=== PATIENT | male | born 1995 | race Caucasian/White ===

== ENCOUNTER 2021-04-06 02:15 | Emergency (ER) | payer SELFPAY ==
[~2021-04-06] VITALS: Ht 177.8 cm; Wt 120.0 kg
[2021-04-06] MEDS ORDERED: LIDOCAINE-MPF 1%, 5ML INFIL ONE (02:30)
[2021-04-06] MEDS ORDERED: DIPH,PERTUSS(ACELL),TET VAC/PF 0.5 ML IM-VACC ONE ×2 (02:30→02:33)
[2021-04-06] MEDS ORDERED: LIDOCAINE-MPF 1%, 5ML ONE (02:32)
[2021-04-06] MEDS ORDERED: NEOSPORIN OINT. PKT 1 PACKET ONE (03:39)
--- NOTE | 2021-04-06 03:54 | NUR ---
Patient given discharge instructions and they have confirmed that they understand the instructions. Patient ambulatory with steady gait.
[2021-04-06 04:00] VITALS: BP 151/88
== END 2021-04-06 04:02 | disposition home or self-care (01) ==
LOC: ED 03:56
DX: S01.511A Laceration without foreign body of lip, initial encounter (principal); S09.90XA Unspecified injury of head, initial encounter; Y04.8XXA Assault by other bodily force, initial encounter; Y93.89 Activity, other specified; Y92.89 Other specified places as the place of occurrence of the external cause; Y99.8 Other external cause status
CPT/HCPCS: 12051; 70450; 70486; 90471; 90715